=== PATIENT | male | born 1940 | race Caucasian/White ===

== ENCOUNTER → 2017-03-31 | Outpatient (CLI) | payer MEDICARE, OTHER | END | disposition home or self-care (01) | LOC: RAD 13:40 | PROVIDERS: ATTEND Neurological Surgery | DX: M48.02 Spinal stenosis, cervical region (principal); M50.323 Other cervical disc degeneration at C6-C7 level; M51.36 Other intervertebral disc degeneration, lumbar region; M12.88 Other specific arthropathies, not elsewhere classified, other specified site; M51.37 Other intervertebral disc degeneration, lumbosacral region; M48.06 Spinal stenosis, lumbar region; M48.07 Spinal stenosis, lumbosacral region; M47.894 Other spondylosis, thoracic region; M51.24 Other intervertebral disc displacement, thoracic region; G62.9 Polyneuropathy, unspecified; M25.78 Osteophyte, vertebrae; N28.1 Cyst of kidney, acquired | CPT/HCPCS: 72125; 72141; 72146; 72148 ==

== ENCOUNTER → 2017-04-07 | Outpatient (CLI) | payer MEDICARE, OTHER | END | disposition home or self-care (01) | LOC: RAD 12:14 | PROVIDERS: ATTEND Neurological Surgery | DX: M51.36 Other intervertebral disc degeneration, lumbar region (principal); M50.30 Other cervical disc degeneration, unspecified cervical region; M41.85 Other forms of scoliosis, thoracolumbar region; M47.892 Other spondylosis, cervical region; M43.12 Spondylolisthesis, cervical region; M43.16 Spondylolisthesis, lumbar region | CPT/HCPCS: 72050; 72082; 72110 ==

== ENCOUNTER → 2017-05-06 | Outpatient (CLI) | payer MEDICARE, OTHER | LOC: RAD 14:38 | PROVIDERS: ATTEND Neurological Surgery | DX: Z02.9 Encounter for administrative examinations, unspecified (principal) ==

== ENCOUNTER 2017-08-19 23:12 | Emergency (ER) | payer MEDICARE, OTHER ==
[~2017-08-19] VITALS: Ht 177.8 cm; Wt 66.3 kg
[2017-08-19 23:13] VITALS: BP 162/81
== END 2017-08-20 00:30 | disposition home or self-care (01) ==
LOC: ED 23:59
DX: L50.1 Idiopathic urticaria (principal)
CPT/HCPCS: 99281

== ENCOUNTER 2018-07-19 15:43 | Emergency (ER) | payer MEDICARE, OTHER ==
[~2018-07-19] VITALS: Ht 172.7 cm; Wt 59.1 kg
[2018-07-19 16:30] LABS: BASOPHILS # (AUTO) 0.03 x10^3/uL (0-0.1); BASOPHILS % (AUTO) 1 % (0-1); EOSINOPHILS # (AUTO) 0.07 x10^3/uL (0-0.4); EOSINOPHILS % (AUTO) 1 % (1-7); LYMPHOCYTES # (AUTO) 1.19 x10^3/uL (1-3.4); LYMPHOCYTES % (AUTO) 20 % (22-44); MD NO; MEAN CORPUSCULAR HEMOGLOBIN 30.8 pg (27.5-34.5); MEAN CORPUSCULAR HGB CONC 33.9 g/dL (33.2-36.2); MEAN CORPUSCULAR VOLUME 90.9 fL (81-97); MEAN PLATELET VOLUME 7.3 fL (7.4-10.4); MONOCYTES # (AUTO) 0.43 x10^3/uL (0.2-0.8); MONOCYTES % (AUTO) 7 % (2-9); NEUTROPHILS # (AUTO) 4.28 x10^3/uL (1.8-6.8); NEUTROPHILS % (AUTO) 71 % (42-75); PLATELET COUNT 224 x10^3/uL (130-400); RED BLOOD COUNT 4.21 x10^6/uL (4.38-5.82); RED CELL DISTRIBUTION WIDTH 14.7 % (9.4-14.8)
[2018-07-19] MEDS ORDERED: SODIUM CHLORIDE FLUSH 10ML SYR IVF ONE (16:30)
[2018-07-19 16:40] LABS: ALANINE AMINOTRANSFERASE 29 U/L (12-78); ALBUMIN 3.6 g/dL (3.4-5.0); ANION GAP 8 mmol/L (5-15); CALCIUM 8.2 mg/dL (8.5-10.1); CHLORIDE 107 mmol/L (98-107)
[2018-07-19 16:45] LABS: ALKALINE PHOSPHATASE 118 U/L (45-117); BILIRUBIN,TOTAL 0.6 mg/dL (0.2-1.0); CREATININE 0.62 mg/dL (0.7-1.3); TOTAL PROTEIN 6.7 g/dL (6.4-8.2); TROPONIN I < 0.015 ng/mL (0.000-0.045)
[2018-07-19 17:31] LABS: CULTURE INDICATED? NO; MICROSCOPIC NOT IND
[2018-07-19] MEDS ORDERED: DULO30CA2 PO (17:34)
[2018-07-19] MEDS ORDERED: ATOR-2 PO (17:34)
[2018-07-19] MEDS ORDERED: FINA5TAB4 PO (17:34)
[2018-07-19] MEDS ORDERED: NAPR220C2 PO (17:35)
[2018-07-19 18:27] VITALS: BP 182/99
== END 2018-07-19 18:29 | disposition home or self-care (01) ==
LOC: ED 17:23
DX: R42 Dizziness and giddiness (principal)
CPT/HCPCS: 36415; 71045; 80053; 81003; 83605; 84484; 85025; 93005; 99285

== ENCOUNTER → 2019-03-17 | Outpatient (CLI) | payer MEDICARE, OTHER ==
[~2019-03-17] MED LIST: ATOR-2 PO; DULO30CA2 PO; FINA5TAB4 PO; NAPR220C2 PO
== END | disposition home or self-care (01) ==
LOC: RAD 11:38
PROVIDERS: ATTEND Neurological Surgery
DX: M47.817 Spondylosis without myelopathy or radiculopathy, lumbosacral region (principal); M41.85 Other forms of scoliosis, thoracolumbar region; M47.815 Spondylosis without myelopathy or radiculopathy, thoracolumbar region; M43.17 Spondylolisthesis, lumbosacral region
CPT/HCPCS: 72082

== ENCOUNTER 2020-04-12 11:55 | Emergency (ER) | payer MEDICARE, OTHER ==
[~2020-04-12] VITALS: Ht 172.7 cm; Wt 63.0 kg
[2020-04-12] MEDS ORDERED: ONDANSETRON 2MG/ML, 2ML ONE (12:07)
[2020-04-12] MEDS ORDERED: MORPHINE SULFATE 4 MG/ML, 1ML ONE (12:08)
[2020-04-12] MEDS ORDERED: MORPHINE SULFATE 4 MG/ML, 1ML IVPush PRN (12:30)
[2020-04-12] MEDS ORDERED: ONDANSETRON 2MG/ML, 2ML IVPush ONE (12:30)
[2020-04-12] MEDS ORDERED: SODIUM CHLORIDE FLUSH 10ML SYR IVF ONE (12:30)
--- NOTE | 2020-04-12 13:53 | NUR ---
PAIN BETTER AFTER MORPHINE. WAITING FOR CT RESULTS.
[2020-04-12 14:34] VITALS: BP 153/76
== END 2020-04-12 14:53 | disposition home or self-care (01) ==
LOC: ED 14:48
DX: S16.1XXA Strain of muscle, fascia and tendon at neck level, initial encounter (principal); S29.012A Strain of muscle and tendon of back wall of thorax, initial encounter; S23.9XXA Sprain of unspecified parts of thorax, initial encounter; E11.9 Type 2 diabetes mellitus without complications; V43.52XA Car driver injured in collision with other type car in traffic accident, initial encounter; Y93.89 Activity, other specified; Y92.009 Unspecified place in unspecified non-institutional (private) residence as the place of occurrence of the external cause; Y99.8 Other external cause status
CPT/HCPCS: 70450; 72125; 72128; 96374; 96375; 99285; J2270; J2405

== ENCOUNTER → 2020-07-31 | Outpatient (CLI) | payer MEDICARE | END | disposition home or self-care (01) | LOC: RAD 12:13 | PROVIDERS: ATTEND Physician Assistant | DX: M47.12 Other spondylosis with myelopathy, cervical region (principal); M50.30 Other cervical disc degeneration, unspecified cervical region; M43.22 Fusion of spine, cervical region; M51.37 Other intervertebral disc degeneration, lumbosacral region; M48.07 Spinal stenosis, lumbosacral region; M47.817 Spondylosis without myelopathy or radiculopathy, lumbosacral region; M41.85 Other forms of scoliosis, thoracolumbar region; M47.814 Spondylosis without myelopathy or radiculopathy, thoracic region | CPT/HCPCS: 72050; 72072; 72082; 72110; 72141; 72148 ==

== ENCOUNTER → 2020-10-17 | Outpatient (CLI) | payer MEDICARE ==
[~2020-10-17] MED LIST changes: +ASCO500T8 PO; +ATOR20TA37 PO; +CALC600T60 PO; +CHOL10003 PO; +MIRA50TA PO; +MULT-751 PO; +PREG150C PO
[2020-10-17 14:38] LABS: ANION GAP 4 mmol/L (5-15); CALCIUM 9.1 mg/dL (8.5-10.1); CHLORIDE 105 mmol/L (98-107); CREATININE 0.83 mg/dL (0.7-1.3)
[2020-10-17 15:06] LABS: BASOPHILS % (AUTO) 1 % (0-1); EOSINOPHILS % (AUTO) 2 % (1-7); LYMPHOCYTES % (AUTO) 32 % (22-44); MEAN CORPUSCULAR HEMOGLOBIN 29.4 pg (27.5-34.5); MEAN CORPUSCULAR HGB CONC 33.3 g/dL (33.2-36.2); MEAN PLATELET VOLUME 7.9 fL (7.4-10.4); MONOCYTES % (AUTO) 11 % (2-9); NEUTROPHILS % (AUTO) 54 % (42-75); PLATELET COUNT 268 x10^3/uL (130-400); RED BLOOD COUNT 4.41 x10^6/uL (4.38-5.82); RED CELL DISTRIBUTION WIDTH 16.1 % (9.4-14.8)
[2020-10-17 15:07] LABS: MD NO
[2020-10-17 15:30] LABS: INTERNATIONAL NORMALIZED RATIO 0.98 (0.93-1.1); PROTHROMBIN TIME 10.5 Seconds (9.6-11.5)
== END | disposition home or self-care (01) ==
LOC: STAR 12:24
PROVIDERS: ATTEND Neurological Surgery
DX: Z01.810 Encounter for preprocedural cardiovascular examination (principal); Z01.811 Encounter for preprocedural respiratory examination; Z01.812 Encounter for preprocedural laboratory examination; Z01.818 Encounter for other preprocedural examination; R79.1 Abnormal coagulation profile; M48.062 Spinal stenosis, lumbar region with neurogenic claudication; Z20.822 Contact with and (suspected) exposure to COVID-19
CPT/HCPCS: 71046; 80048; 85025; 85610; 85730; 87635; 93005

== ENCOUNTER 2020-10-23 10:43 | Inpatient (IN) | payer MEDICARE ==
[~2020-10-23] VITALS: Ht 175.3 cm; Wt 65.0 kg
[~2020-10-23 10:43] MED LIST changes: +BACITRACIN 50,000 UNIT ONE; +BUPIVACAINE/PF 0.5% ONE; +EPINEPHRINE 1 MG/ML, 1ML ONE; +THROMBIN 20,000 UNIT VIAL TP ONE
[2020-10-23] MEDS ORDERED: CHLORHEXIDINE 15 ML UDC ONE (11:25)
[2020-10-23] MEDS ORDERED: ONDANSETRON 2MG/ML, 2ML IVPush PRN (11:30)
[2020-10-23] MEDS ORDERED: METHOCARBAMOL 1,000 MG in DEXTROSE 5% 100 ML IV PRN (11:30)
[2020-10-23] MEDS ORDERED: HYDROmorphone 1 MG/ML, 1ML INJ IVPush PRN (11:30)
[2020-10-23] MEDS ORDERED: OXYcodone 5 MG/5 ML ORAL.SOL UDC PO PRN (11:30)
[2020-10-23] MEDS ORDERED: PROMETHAZINE 25 MG/ML, 1ML IVPush PRN (11:30)
[2020-10-23] MEDS ORDERED: FENTANYL PF 100 MCG/2ML IV PRN (11:30)
[2020-10-23] MEDS ORDERED: LACTATED RINGERS 1,000 ML IV SCH (11:30)
[2020-10-23] MEDS ORDERED: CHLORHEXIDINE 15 ML UDC MM ONE (11:30)
[2020-10-23] MEDS ORDERED: HYDROcodone/APAP 7.5-325MG/15ML UDC PO PRN (11:30)
[2020-10-23] MEDS ORDERED: MEPERIDINE/PF 25MG/0.5ML IVPush PRN (11:30)
[2020-10-23] MEDS ORDERED: FENTANYL PF 100 MCG/2ML ONE (12:31)
[2020-10-23] MEDS ORDERED: PROPOFOL 10 MG/ML, 20ML ONE (12:53)
[2020-10-23] MEDS ORDERED: ROCURONIUM 10 MG/ML,10ML ONE (12:53)
[2020-10-23] MEDS ORDERED: PHENYLEPHRINE 10 MG/ML ONE (12:53)
[2020-10-23] MEDS ORDERED: ONDANSETRON 2MG/ML, 2ML ONE (12:53)
[2020-10-23] MEDS ORDERED: SUCCINYLCHOLINE 20 MG/ML, 10ML ONE (12:53)
[2020-10-23] MEDS ORDERED: CEFAZOLIN 1,000 MG ONE (12:53)
[2020-10-23] MEDS ORDERED: EPHEDRINE 50 MG/ML, 1ML ONE (12:53)
[2020-10-23] MEDS ORDERED: DEXAMETHASONE 4 MG/ML, 1ML ONE (12:53)
[2020-10-23 17:00] VITALS: BP 138/73
[2020-10-23] MEDS ORDERED: METHOCARBAMOL 1,000 MG in DEXTROSE 5% 100 ML IV ONE (17:30)
[2020-10-23] MEDS ORDERED: DIPHENHYDRAMINE 50 MG/ML, 1ML IM PRN (17:30)
[2020-10-23] MEDS ORDERED: HYDROcodone/APAP 10/325 MG TABLET PO PRN (17:30)
[2020-10-23] MEDS ORDERED: BISACODYL 10 MG SUPP PR PRN (17:30)
[2020-10-23] MEDS ORDERED: MAGNESIUM HYDROXIDE 8%, 30ML UDC PO PRN (17:30)
[2020-10-23] MEDS ORDERED: DIPHENHYDRAMINE 50 MG/ML, 1ML IVPush PRN (17:30)
[2020-10-23] MEDS ORDERED: ACETAMINOPHEN 650 MG SUPP PR PRN (17:30)
[2020-10-23] MEDS ORDERED: ACETAMINOPHEN 325 MG TABLET PO PRN (17:30)
[2020-10-23] MEDS ORDERED: ONDANSETRON 2MG/ML, 2ML IV PRN (17:30)
[2020-10-23] MEDS ORDERED: morphine SULFATE 10 MG/ML, 1ML IV PRN (17:30)
[2020-10-23] MEDS ORDERED: DIPHENHYDRAMINE 25 MG CAPSULE PO PRN (17:30)
[2020-10-23] MEDS ORDERED: PROMETHAZINE 25 MG/ML, 1ML IM PRN (17:30)
[2020-10-23] MEDS: NS + 20MEQ KCL 1,000 ML IV SCH (18:46)
[2020-10-23] MEDS ORDERED: OXYcodone IR 5MG TABLET PO PRN (20:00)
[2020-10-23 20:06] VITALS: BP 141/87
[2020-10-23 23:24] VITALS: BP 114/62
[2020-10-23] MEDS: ATORVASTATIN 20 MG TABLET PO SCH (23:34)
[2020-10-23] MEDS: DULOXETINE 30 MG CAPSULE.DR PO SCH (23:34)
[2020-10-23] MEDS: CEFAZOLIN PMX 2GM/50ML 50 ML IVPB SCH (23:34)
[2020-10-24] MEDS: METHOCARBAMOL 750 MG in DEXTROSE 5% 100 ML IV SCH ×3 (03:11→18:39)
[2020-10-24 03:54] VITALS: BP 107/58
[2020-10-24 07:20] VITALS: BP 121/64
[2020-10-24] MEDS: CEFAZOLIN PMX 2GM/50ML 50 ML IVPB SCH ×2 (08:29→16:06)
[2020-10-24] MEDS: FINASTERIDE 5 MG TABLET PO SCH (08:30)
[2020-10-24] MEDS: DULOXETINE 30 MG CAPSULE.DR PO SCH ×2 (08:32→21:00)
[2020-10-24] MEDS: SENNA/DOCUSATE TABLET PO SCH (08:32)
[2020-10-24] MEDS: CALCIUM CARBONATE 500 MG TAB.CHEW PO SCH (08:32)
[2020-10-24] MEDS: MIRABEGRON 50 MG PO SCH (09:00)
[2020-10-24 13:00] VITALS: BP 111/59
[2020-10-24] MEDS: NS + 20MEQ KCL 1,000 ML IV SCH (14:27)
[2020-10-24 18:45] VITALS: BP 134/65
[2020-10-24] MEDS: ATORVASTATIN 20 MG TABLET PO SCH (21:00)
[2020-10-25 00:09] VITALS: BP 155/78
[2020-10-25] MEDS: METHOCARBAMOL 750 MG in DEXTROSE 5% 100 ML IV SCH ×3 (02:48→19:59)
[2020-10-25 06:28] VITALS: BP 134/71
[2020-10-25] MEDS: MIRABEGRON 50 MG PO SCH (09:00)
[2020-10-25] MEDS: CALCIUM CARBONATE 500 MG TAB.CHEW PO SCH (10:12)
[2020-10-25] MEDS: DULOXETINE 30 MG CAPSULE.DR PO SCH ×2 (10:12→19:59)
[2020-10-25] MEDS: SENNA/DOCUSATE TABLET PO SCH (10:12)
[2020-10-25] MEDS: FINASTERIDE 5 MG TABLET PO SCH (10:12)
[2020-10-25 13:50] VITALS: BP 124/67
[2020-10-25] MEDS: NS + 20MEQ KCL 1,000 ML IV SCH (17:36)
[2020-10-25 19:12] VITALS: BP 136/71
[2020-10-25] MEDS: ATORVASTATIN 20 MG TABLET PO SCH (20:00)
[2020-10-26 01:05] VITALS: BP 137/73
[2020-10-26] MEDS: METHOCARBAMOL 750 MG TABLET PO SCH ×3 (01:33→17:42)
[2020-10-26 08:35] VITALS: BP 120/70
[2020-10-26] MEDS: DULOXETINE 30 MG CAPSULE.DR PO SCH ×2 (08:49→20:01)
[2020-10-26] MEDS: SENNA/DOCUSATE TABLET PO SCH (08:49)
[2020-10-26] MEDS: CALCIUM CARBONATE 500 MG TAB.CHEW PO SCH (08:50)
[2020-10-26] MEDS: FINASTERIDE 5 MG TABLET PO SCH (08:50)
[2020-10-26] MEDS: MIRABEGRON 50 MG PO SCH (09:00)
[2020-10-26] MEDS: HYDROcodone/APAP 5/325 TABLET PO PRN ×2 (09:05→20:01)
[2020-10-26 13:05] VITALS: BP 104/60
[2020-10-26] MEDS: NS + 20MEQ KCL 1,000 ML IV SCH (13:48)
[2020-10-26 19:03] VITALS: BP 117/69
[2020-10-26] MEDS: ATORVASTATIN 20 MG TABLET PO SCH (20:01)
[2020-10-27 00:19] VITALS: BP 137/75
[2020-10-27] MEDS: METHOCARBAMOL 750 MG TABLET PO SCH ×2 (01:11→09:07)
[2020-10-27] MEDS: HYDROcodone/APAP 5/325 TABLET PO PRN ×2 (03:44→14:08)
[2020-10-27] MEDS: NS + 20MEQ KCL 1,000 ML IV SCH (05:37)
[2020-10-27] MEDS: MIRABEGRON 50 MG PO SCH (07:33)
[2020-10-27 08:00] VITALS: BP 133/71
[2020-10-27] MEDS: CALCIUM CARBONATE 500 MG TAB.CHEW PO SCH (09:07)
[2020-10-27] MEDS: DULOXETINE 30 MG CAPSULE.DR PO SCH (09:07)
[2020-10-27] MEDS: SENNA/DOCUSATE TABLET PO SCH (09:07)
[2020-10-27] MEDS: FINASTERIDE 5 MG TABLET PO SCH (09:19)
[2020-10-27 12:03] VITALS: BP 118/67
[2020-10-27 13:29] VITALS: BP 126/65
[2020-10-27] MEDS ORDERED: TIZA2CAP PO (13:50)
[2020-10-27] MEDS ORDERED: HYDR-1067 PO (13:50)
[2020-10-27] MEDS ORDERED: ACET325C6 PO (13:50)
== END 2020-10-27 15:14 | DRG 517 ==
LOC: OUT 10:43 → 4NE 16:52 → OUT 17:01
PROVIDERS: ADMIT Neurological Surgery; ATTEND Neurological Surgery
PROC: 01NR0ZZ Release Sacral Nerve, Open Approach (ICD-10-PCS; 2020-10-23)
PROC: 4A11X4G Monitoring of Peripheral Nervous Electrical Activity, Intraoperative, External Approach (ICD-10-PCS; 2020-10-23)
PROC: 01NB0ZZ Release Lumbar Nerve, Open Approach (ICD-10-PCS; principal; 2020-10-23 12:30)
DX: M48.062 Spinal stenosis, lumbar region with neurogenic claudication (principal)
CPT/HCPCS: 72100; 95938; 95941; G0378; J0171; J0690; J1100; J2405; J2704; J3010; J3480; J0330; J2370; J2800; J7120

== ENCOUNTER → 2021-06-18 | Outpatient (CLI) | payer MEDICARE | END | disposition home or self-care (01) | LOC: RAD 11:31 | PROVIDERS: ATTEND Physician Assistant Surgical | DX: M54.2 Cervicalgia (principal) ==